=== PATIENT | male | born 1990 | race Native Hawaiian/Other Pacific Islander ===

== ENCOUNTER 2022-09-07 09:54 | Emergency (ER) | payer BC ==
[~2022-09-07] VITALS: Ht 167.6 cm; Wt 88.5 kg
[~2022-09-07 09:54] MED LIST: AMOX500C85 PO; BENZONATATE200 MG PO
[2022-09-07 09:55] VITALS: TEMP 97
[2022-09-07 10:32] LABS: POTASSIUM 3.3 mmol/L (3.6-5.2)
[2022-09-07 10:41] LABS: PLATELET COUNT 217 K/uL (142-355)
[2022-09-07 12:26] VITALS: BP 132/78
== END 2022-09-07 12:28 | disposition home or self-care (01) ==
LOC: ED 09:54
PROVIDERS: Emergency Medicine
DX: N13.2 Hydronephrosis with renal and ureteral calculous obstruction (principal)
CPT/HCPCS: 80048; 85027; 96374; 96375; 99284; J1885; J2175; J2405